=== PATIENT | male | born 1970 | race Caucasian/White ===

== ENCOUNTER 2016-08-20 11:54 | Emergency (ER) | payer OTHER ==
--- NOTE | ~2016-08-20 | HP ---
Unit #: [id number] #: [id number] Patient: EBENEZER COTTRELL JR [id number] [address] [address] [id number] I MR#: [id number] NAME: EBENEZER COTTRELL JR ROOM: [facility] Age: 46 Sex: M Admission Date: 08/20/2016 : 1970 Attending Physician: Micha Easley M.D. Primary Care Physician: Primary Care Physician No HISTORY AND PHYSICAL CHIEF COMPLAINT Pancreatitis. HISTORY OF PRESENT ILLNESS This 46-year-old male with a previous history of alcohol-induced pancreatitis, injectable methamphetamine use, was transferred from [facility] Emergency Department for pancreatitis. The patient is a poor historian as he received Phenergan and Morphine prior to transfer. He states that he was in his usual state of health until yesterday when he developed upper abdominal pain with nausea and vomiting. He went to [facility] Emergency Department this morning and was diagnosed with acute pancreatitis and left with his IV intact. He went back to [facility] this evening and was transferred to this facility after receiving IV fluids, Phenergan and Morphine. He states that he drinks alcohol 3 to 4 times a month only. He does inject methamphetamines with clean needles. PAST MEDICAL HISTORY 1. Alcohol-induced pancreatitis. 2. Chronic back pain. 3. Extensive laceration to the scalp requiring surgery. 4. Left inguinal hernia repair. SOCIAL HISTORY The patient is homeless. He drinks 3 to 4 times each month. He smokes one-half pack per day of tobacco. He injects methamphetamines. FAMILY HISTORY Negative for pancreatic disease. ALLERGIES None. MEDICATIONS None. REVIEW OF SYSTEMS Review of systems difficult to obtain as the patient is somnolent and I have to prompt him several times to answer questions. PHYSICAL EXAMINATION GENERAL APPEARANCE: Thin, somnolent but arousable 46-year-old male, currently is in no acute distress. Unit #: [id number] #: [id number] Patient: EBENEZER COTTRELL JR VITAL SIGNS: Temperature 98.8, pulse 56, respirations 20, B/P 129/86, 02 saturation 100% on room air. HEENT: Eyes - PERRLA, extraocular muscles are intact. Pharynx is benign. NECK: Supple without adenopathy or thyromegaly. CHEST: Clear. HEART: Normal S1 and S2 without S3, S4 or murmur. ABDOMEN: Bowel sounds are present. Abdomen is fairly benign at present, perhaps some mild epigastric tenderness, no hepatosplenomegaly, rebound or guarding. EXTREMITIES: Without CC or E, pedal pulses are present. NEUROLOGIC: The patient is somnolent but arousable. Cranial nerves are intact. There is equal strength throughout. DIAGNOSTIC STUDIES LABORATORY: Hematocrit 45.7, normal white count, platelet count. SMA 12 - AST 72, ALT is 83, lipase 1,900, alcohol level less than 5. Normal triglyceride level. Urine tox screen positive for amphetamines and marijuana. Urinalysis is negative. IMAGING: No imaging studies were done. ASSESSMENT 1. Acute pancreatitis with previous history of alcohol-induced pancreatitis. 2. Methamphetamine abuse. The patient states that he uses clean needles. 3. Elevated LFTs. 4. Homeless. PLAN 1. Aggressive IV fluids and supportive treatment. Will also write for H2 blockers and repeat labs in the morning. 2. CT scan of the abdomen in the morning. 3. DVT prophylaxis. 4. Check HIV and Hepatitis profile. 5. I's and O's. 6. [employer] to see for homelessness. Dictated by Hetal Bahena M.D. ANGÉLICA/mely TD: 08/20/2016 23:12 JOB #: [id number] HISTORY AND PHYSICAL Page 1 of 1 X Hetal Bahena MD X HISTORY AND PHYSICAL
--- NOTE | ~2016-08-20 | DS ---
Unit #: [id number] #: [id number] Patient: EBENEZER COTTRELL JR [id number] [address] [place], [place] [address] [id number] I MR#: [id number] NAME: EBENEZER COTTRELL JR ROOM: [facility] Age: 46 Sex: M Admission Date: 08/20/2016 : 1970 Discharge Date: 08/22/2016 Attending Physician: Clementina Segura M.D. Primary Care Physician: No Primary Care Physician DISCHARGE SUMMARY PRINCIPAL DIAGNOSES 1. Acute pancreatitis of unknown etiology. 2. IV drug abuse including methamphetamine. 3. Transaminitis with pending viral hepatitis panel. 4. Marijuana use. 5. Homeless. 6. Hypophosphatemia. CONSULTANTS None. PROCEDURES CT scan of the abdomen and pelvis, on August 21, 2016, with acute pancreatitis affecting the body and tail of the pancreas, extensive peripancreatic stranding without any evidence of drainable mass. There is prominence of patient's pancreatic duct involving the neck of the pancreas. Low attenuation lesions in the tail of the pancreas which communicates with the pancreatic duct. These are stable since 2013. Questionable ileus of the splenic flexure of the bowel. Constipation also noted. CLINICAL HISTORY AND HOSPITAL COURSE Mr. Cottrell is a 46-year-old male with a history of recurrent pancreatitis who presents to the ER with complaints of abdominal pain. Please refer to H and P for further details. Lipase in the emergency department was elevated at 1,900. Urine drug screen was positive for amphetamines and marijuana. The patient was subsequently admitted. The patient was given ice chips, antiemetics, pain medication and IV fluids. Lipase decreased very quickly. He was started on liquids which he is tolerating without any nausea, vomiting or pain. On day of discharge, lipase is now down to 341 and patient is insisting he is very hungry. I am going to give him a low fat diet and, assuming he is able to tolerate this, I think he can be discharged home later today. I will note that CT scan did reveal perhaps some abnormality of the peripancreatic duct and this can be followed up as an outpatient. He will likely need endoscopic ultrasound [facility] at [facility]. In regards to patient's IV drug abuse, he had no abnormal behavior during hospitalization and no evidence of withdrawal. DISCHARGE CONDITION Stable. Unit #: [id number] #: [id number] Patient: EBENEZER COTTRELL JR DISCHARGE STATUS Discharged to home. DISCHARGE MEDICATIONS None. DISCHARGE INSTRUCTIONS The patient is instructed to follow a low fat diet for the next few days and then to increase as tolerated. FOLLOWUP We will allow the patient to follow up in transition clinic in two to three weeks and will try to arrange outpatient follow up with Dr. Rainey given he may require endoscopic ultrasound at [facility] at some point. Dictated by... Clementina Segura M.D. SAMUEL/renetta TD: 08/22/2016 12:01 JOB #: [id number] DISCHARGE SUMMARY Page 1 of 1 X Clementina Segura MD X DISCHARGE SUMMARY
--- NOTE | ~2016-08-20 | EKG ---
PATIENT: EBENEZER COTTRELL UNIT #: [id number] Ventricular Rate: 68 BPM Atrial Rate: 68 BPM P-R Interval: 134 ms QRS Duration: 102 ms Q-T Interval: 414 ms QTC Calculation(Bezet): 440 ms P Douglas: 84 degrees Calculated R Douglas: 75 degrees Calculated T Douglas: 67 degrees Diagnosis Line: Normal sinus rhythm Diagnosis Line: Normal ECG Diagnosis Line: No previous ECGs available Diagnosis Line: Confirmed by RAIZA MURO MD ([id number]) on 08/22/2016 Diagnosis Line: 10:20:50 AM INTERPRETING MD: BHASKAR LEON
--- NOTE | ~2016-08-20 | CT2 ---
[facility] A Service of [facility] & [facility] RADIOLOGY TEXT RESULTS PATIENT: EBENEZER COTTRELL JR LOCATION: [facility] 334- : [birth year] UNIT #: [id number] AGE: [address]: Clementina Segura MD SEX: M ORDER DR: [id number] [facility]. [place], [place] [address] [id number] I MR#: [id number] Acc #: [id number] NAME: EBENEZER COTTRELL JR : 1970 SEX: M STUDY DATE/TIME: 08/21/2016 9:28 UNIT: [address] ROOM: [facility] STUDY DESCRIPTION: CT Abd and Pelv W Cont Attending Physician: Clementina Segura M.D. Ordering Physician: Hetal Bahena M.D. Primary Care Physician: Primary Care Physician No MEDICAL IMAGING REPORT This report is preliminary unless electronic signature is present EXAM CT abdomen and pelvis with contrast. INDICATIONS Pancreatitis. Patient has had abdominal pain since yesterday as well as nausea and vomiting. This is located within the upper abdomen. TECHNIQUE Axial CT images were obtained from the dome of the diaphragm through symphysis pubis following the administration of IV contrast material. This CT exam was performed with one or more of the following radiation dose reduction techniques: automatic exposure control, adjustment of mA and/or kV according to patient size, and iterative reconstruction. FINDINGS Patient has dependent atelectasis bilaterally. There is a calcified granuloma within the left lower lobe. The patient's pancreas is enlarged and edematous, particularly the body and tail. There is extensive peripancreatic edema without a discrete drainable fluid collection seen. The splenic artery remains patent as is the portal vein. There is a low-attenuation lesion identified within the pancreas which does appear to communicate with the pancreatic duct. It was present in December 2012 and is probably not significantly changed when compared to that exam. There is some additional mild prominent peripancreatic duct seen within the neck of the pancreas, this also was present on the prior exam. Tiny low-attenuation lesion seen within the right hepatic lobe has been unchanged since December 2012 and this is benign. No new lesions are seen within the liver. There is perihepatic ascites. Spleen appears unremarkable. There is no evidence mechanical bowel obstruction, although the patient does have prominent loops of small bowel seen within the left upper quadrant likely reflecting some localized STS. [facility] A Service of [facility] RADIOLOGY TEXT RESULTS PATIENT: EBENEZER COTTRELL JR LOCATION: [facility] 334-01 : [birth year] UNIT #: [id number] AGE: [address]: Clementina Segura MD SEX: M ORDER DR: ileus and gallbladder is normal as are the kidneys. Extensive fecal burden is seen throughout the colon. Correlation with history of constipation is suggested. Urinary bladder is within normal limits as is the prostate gland. Patient does have some pelvic free fluid likely reactive. There is some inflammatory stranding seen about the splenic flexure of the colon, again without convincing evidence of obstruction. Patient does have a replaced common hepatic artery, to the superior mesenteric artery which is a normal anatomic variant. Bilateral pars defects are noted at L4-L5 with some mild associated spondylolisthesis noted. I do not see any intra or extrahepatic biliary dilatation. IMPRESSION 1. Patient has findings characteristic of acute pancreatitis predominately affecting the body and tail of the pancreas. There is extensive peripancreatic stranding without discrete drainable peripancreatic collections seen. The patient's splenic vein remains patent and there is no intra or extrahepatic biliary dilatation although there is some mild prominence of the patient's pancreatic duct, involving the neck of the pancreas. 2. Low-attenuation lesions seen within the tail of the pancreas which communicates with the pancreatic duct, stable since 2012. 3. Prominent loops of small bowel seen within the left upper quadrant likely reflecting some localized ileus related to the inflammation in the pancreas. The patient is also noted to have some inflammatory stranding seen around the splenic flexure of the colon without definite obstruction. 4. Extensive fecal burden is noted throughout the colon. Correlation with history of constipation is suggested. Please see the body of the report for any other additional incidental findings. Dictated by... Danae Coulter M.D. THIS IS AN ELECTRONICALLY VERIFIED REPORT Danae Coulter M.D. at 08/21/2016 4:17 PM AFF/dj TD: 08/21/2016 10:16 JOB #: [id number] MEDICAL IMAGING REPORT Page 1 of 1 COPY
[~2016-08-20 11:54] MED LIST: ANTIBIOTIC; BACTRIM DS TABL1 TA1 PO; BACTRIM DS TABL1 TA2 PO; BAYER ASPIRIN325 M1 PO; CLEOCIN PO; DICLOFENAC PO; HYDROCODON-ACE1 EAC7 PO; HYDROGESIC 5/501 CAP PO; KEFLEX500 M1 PO; LORTAB 10/500 T1 TAB PO; NO MEDICATIONS; TYLOX 5/500 CAP1 CAP PO; VOLTAREN75 MG PO
[2016-08-20 12:50] LABS: BASOPHIL# 0.1 X10e3 (0-0.3); BASOPHIL% 1.1 % (0-2.5); EOSINOPHIL# 0.2 X10e3 (0-0.7); EOSINOPHIL% 2.3 % (0.0-7.0); MONOCYTE# 1.2 X10e3 (0-1.0); RED BLOOD COUNT 4.88 X10e (3.90-5.60); WHITE BLOOD COUNT 8.2 X10e3 (4.0-10.5)
[2016-08-20 12:52] LABS: HEMATOCRIT 45.7 % (38.0-50.0); HEMOGLOBIN 15.6 gm/dL (13.0-16.0); LYMPHOCYTE# 1.9 X10e3 (1.0-3.5); LYMPHOCYTE% 23.2 % (17.0-45.0); MEAN CELL VOLUME 93.6 FL (83-96); MEAN CORPUSCULAR HGB CONC 34.2 g/dL (30-36); MEAN PLATELET VOLUME 8.1 FL (6.5-11.5); MONOCYTE% 14.5 % (3.0-12.0); NEUTROPHIL# 4.8 X10e3 (1.5-7.1); NEUTROPHIL% 58.9 % (40-75); PLATELET COUNT 369 X10e3 (140-420)
[2016-08-20 12:53] LABS: DIFF IND NO
[2016-08-20 13:22] LABS: ALBUMIN SERUM 3.9 g/dL (3.5-5.0); ALKALINE PHOSPHATASE 72 U/L (32-92); ALT (SGPT) 83 U/L (10-40); AST (SGOT) 72 U/L (10-42); BILIRUBIN, DIRECT 0.1 mg/dL (0.0-0.2); BILIRUBIN,INDIRECT 0.5 mg/dL (0.0-0.9); BILIRUBIN,TOTAL 0.6 mg/dL (0.2-2.0); BLOOD UREA NITROGEN 20 mg/dL (9-23); BUN/CREATININE RATIO 14.28; CALCIUM SERUM 9.1 mg/dL (8.4-10.2); CARBON DIOXIDE 26 mmol/L (22-31); CHLORIDE 102 mmol/L (100-111); CREATININE SERUM 1.4 mg/dL (0.6-1.4); GLUCOSE FASTING 106 mg/dL (70-110); PROTEIN TOTAL SERUM 8.3 g/dL (6.0-8.3); SODIUM 136 mmol/L (135-145)
[2016-08-20 13:23] LABS: ALCOHOL BLOOD <5 mg/dL (0)
[2016-08-20 13:53] LABS: URINE APPEARANCE CLEAR; URINE BILIRUBIN NEG (NEG); URINE BLOOD NEG (NEG); URINE COLOR YELLOW; URINE GLUCOSE NEG (NORM); URINE KETONE NEG (NEG); URINE LEUKOCYTE ESTERASE NEG (NEG); URINE NITRATE NEG (NEG); URINE PROTEIN NEG (NEG)
[2016-08-20 13:54] LABS: MICRO INDICATED? NO
[2016-08-20 14:04] LABS: AMPHETAMINE POS (NEG); BARBITURATES NEG (NEG); BENZODIAZEPINES NEG (NEG); COCAINE NEG (NEG); MARIJUANA POS (NEG); OPIATES NEG (NEG); TRICYCLIC ANTIDEPRESSANTS NEG (NEG); U METHADONE NEG (NEG)
[2016-08-20 14:24] LABS: LIPASE 1900 U/L (22-51)
[2016-08-21 05:45] LABS: HEMATOCRIT 46.3 % (38.0-50.0); HEMOGLOBIN 15.3 gm/dL (13.0-16.0); MEAN CORPUSCULAR HEMOGLOBIN 31.1 PG (28-34); MEAN CORPUSCULAR HGB CONC 33.1 g/dL (30-36); MEAN PLATELET VOLUME 8.4 FL (6.5-11.5); RED BLOOD COUNT 4.93 X10e (3.90-5.60); RED CELL DISTRIBUTION WIDTH 13.3 % (11.0-15.5)
[2016-08-21 05:49] LABS: INR 1.1; PARTIAL THROMBOPLASTIN TIME 29.4 SECONDS (23.5-31.3); PROTHROMBIN TIME (PATIENT) 11.1 SECONDS (9.6-11.5); WHITE BLOOD COUNT 22.1 X10e3 (4.0-10.5)
[2016-08-21 06:42] LABS: ALBUMIN SERUM 3.6 g/dL (3.5-5.0); BILIRUBIN,TOTAL 1.1 mg/dL (0.2-2.0); BUN/CREATININE RATIO 15.71; CALCIUM SERUM 8.4 mg/dL (8.4-10.2); CREATININE SERUM 0.7 mg/dL (0.6-1.4); GLOM FILT RATE Estimated 111.6 mL/min (>60); POTASSIUM 4.2 mmol/L (3.5-5.1); PROTEIN TOTAL SERUM 7.5 g/dL (6.0-8.3)
[2016-08-22 06:11] LABS: HEMATOCRIT 44.6 % (38.0-50.0); HEMOGLOBIN 14.8 gm/dL (13.0-16.0); MEAN CELL VOLUME 94.2 FL (83-96); MEAN CORPUSCULAR HEMOGLOBIN 31.3 PG (28-34); MEAN CORPUSCULAR HGB CONC 33.2 g/dL (30-36); MEAN PLATELET VOLUME 8.6 FL (6.5-11.5); RED BLOOD COUNT 4.74 X10e (3.90-5.60); RED CELL DISTRIBUTION WIDTH 12.9 % (11.0-15.5); WHITE BLOOD COUNT 11.8 X10e3 (4.0-10.5)
[2016-08-22 08:12] LABS: ALBUMIN SERUM 3.5 g/dL (3.5-5.0); BUN/CREATININE RATIO 11.66; CALCIUM SERUM 8.5 mg/dL (8.4-10.2); CREATININE SERUM 0.6 mg/dL (0.6-1.4); GLOM FILT RATE Estimated 118.9 mL/min (>60); PHOSPHOROUS 2.2 mg/dL (2.5-4.6); POTASSIUM 4.4 mmol/L (3.5-5.1); PROTEIN TOTAL SERUM 7.5 g/dL (6.0-8.3)
[2016-08-25 13:15] LABS: HA AB IGM (HEPPAN) Nonreactive (()); HB CORE AB IGM (HEPPAN) Nonreactive (Nonreactive); HB S AG (HEPPAN) Nonreactive (Nonreactive); HEP C AB (HEPPAN) Reactive (Nonreactive)
== END 2016-08-20 14:00 | disposition home or self-care (01) ==
LOC: SED 11:54 → C3A PCU 21:20 → SED 23:00 → C3A PCU 08-21 07:22
PROVIDERS: Emergency Medicine; Internal Medicine
DX: K85.90 Acute pancreatitis without necrosis or infection, unspecified (principal); E83.39 Other disorders of phosphorus metabolism; K86.1 Other chronic pancreatitis; F15.10 Other stimulant abuse, uncomplicated; R74.0 Nonspecific elevation of levels of transaminase and lactic acid dehydrogenase [LDH]; F12.90 Cannabis use, unspecified, uncomplicated; Z59.0 Homelessness; G89.29 Other chronic pain; F17.210 Nicotine dependence, cigarettes, uncomplicated; M54.9 Dorsalgia, unspecified
CPT/HCPCS: 36415; 74177; 80048; 80053; 80074; 80076; 80307; 81003; 82150; 83690; 83735; 84100; 84443; 85025; 85027; 85610; 85730; 87522; 87806; 93005; 96372; 99284; G0480; J0500; J1650; J2270; Q9967

== ENCOUNTER 2016-08-20 18:27 | Inpatient (IN) | payer OTHER ==
[2016-08-20 20:05] LABS: ALCOHOL BLOOD <5 mg/dL (0); TRIGLYCERIDES 72 mg/dL (10-160)
[2016-08-22] MEDS ORDERED: NO MEDICATIONS (17:27)
== END 2016-08-22 19:48 | disposition home or self-care (01) | DRG 440 ==
LOC: SED 18:27 → CED 18:50 → CEDOF 19:03 → SED 19:03 → C3A PCU 23:00 → SED 08-21 20:56 → C3A PCU 08-22 19:48
PROVIDERS: Emergency Medicine
DX: K85.90 Acute pancreatitis without necrosis or infection, unspecified (principal); F17.210 Nicotine dependence, cigarettes, uncomplicated
CPT/HCPCS: 36415; 74177; 80053; 80074; 82150; 83690; 83735; 84100; 84443; 84478; 85027; 85610; 85730; 87806; 99285; G0480; J1650; J2270; J2550; Q9967